=== PATIENT | female | born 1955 | race Caucasian/White ===

== ENCOUNTER 2017-03-02 22:03 | Emergency (ER) | payer MEDICAID ==
[2017-03-03 00:20] LABS: UA SPECIFIC GRAVITY >=1.030 (1.005-1.035); microscopic required? YES; urine erythrocyte TRACE (NEGATIVE)
[2017-03-03 01:22] VITALS: BP 108/72
== END 2017-03-03 01:22 | disposition home or self-care (01) ==
LOC: ED 22:03
PROVIDERS: Specialist
DX: R51 Headache (principal)
CPT/HCPCS: J1885; Q0162

== ENCOUNTER 2019-06-20 03:50 | Emergency (ER) | payer OTHER, MEDICAID ==
[~2019-06-20] VITALS: Ht 162.6 cm; Wt 61.7 kg
[2019-06-20 03:57] VITALS: BP 178/106; Ht 162.6 cm; Wt 61.7 kg
== END 2019-06-20 05:54 | disposition left against medical advice (07) ==
LOC: ED 03:50
DX: Z53.21 Procedure and treatment not carried out due to patient leaving prior to being seen by health care provider (principal)

== ENCOUNTER 2019-06-26 11:35 | Inpatient (IN) | payer OTHER, MEDICAID ==
[~2019-06-26] VITALS: Ht 162.6 cm; Wt 54.1 kg
--- NOTE | 2019-06-26 12:12 | NUR ---
PT BIB SELF C/O MID CHEST PAIN X3 DAYS AFTER "JUMPING OFF MY FENCE, BECAUSE I HAD LOCKED MY KEYS IN MY HOUSE". NO TRAUMA NOTED, RESPS E/U, PT STS "IT HURTS MORE WHEN I BREATH IN". PT PLACED ON FULL CM, NAD NOTED. SPEECH IS CLEAR, NEURO INTACT, DENIES HEAD INJ. GCS OF 15. BUE SKIN NOTED TO BE INTACT AND DEFORMED PER PT, "I HAD ABSCESSES FROM HEROIN USE, AND THEY'VE HAD TO REMOVE A LOT OF SKIN AND MUSCLE". CALL LIGHT WITHIN REACH. IN POSITION OF COMFORT.
--- NOTE | 2019-06-26 13:14 | NUR ---
REPORT GIVEN TO CAREY WILLIS TO ASSUME CARE OF PT.
--- NOTE | 2019-06-26 14:49 | NUR ---
PT RESTING IN BED WITH EYES CLOSED WITH NO SIGNS OF DISTRESS.
[2019-06-26 15:14] LABS: BASOPHIL % 0.8 % (0-2); PLATELET COUNT 395 x10^3mcL (130-400); RED CELL DISTRIBUTION WIDTH 12.8 % (11.5-14.5)
[2019-06-26 15:37] LABS: CALCIUM 8.3 mg/dL (8.5-10.1); CARBON DIOXIDE 31.2 mmol/L (21-32); CHLORIDE SERUM 103 mmol/L (98-107); CREATININE SERUM 0.9 mg/dL (0.6-1.0); GFR1 > 60 mL/min; GLUCOSE SERUM 93 mg/dL (74-106); SODIUM SERUM 139 mmol/L (136-145)
[2019-06-26 15:43] LABS: ALKALINE PHOSPHATASE 116 U/L (46-116); ALT/SGPT 23 U/L (14-59); AST/SGOT 27 U/L (15-37); BILIRUBIN TOTAL 0.25 mg/dL (0.20-1.00); TOTAL PROTEIN, SERUM 7.4 g/dL (6.4-8.2)
[2019-06-26 15:49] LABS: ALBUMIN 2.4 g/dL (3.4-5.0)
--- NOTE | 2019-06-26 16:02 | NUR ---
PT RESTING IN BED WITH NO SIGNS OF DISTRESS.
--- NOTE | 2019-06-26 17:44 | NUR ---
PT FOUND OUTSIDE OF ER. EXPLAINED TO PT NEED TO STAY IN ROOM.
--- NOTE | 2019-06-26 18:00 | NUR ---
PRINCESS PATINO AT BEDSIDE ATTEMPTING IV.
[2019-06-26 18:08] LABS: T3 TOTAL 1.32 ng/mL
[2019-06-26 18:23] LABS: CHOLESTEROL/HDL RATIO 2.7
[2019-06-26 18:31] LABS: FREE T4 1.09 ng/dL (0.76-1.46); FREE THYROXINE INDEX 2.5 ug/dL (1.4-4.5); T4(THYROXINE) 7.7 ug/dL (4.7-13.3)
--- NOTE | 2019-06-26 19:33 | NUR ---
PT RESTING IN BED WITH FRIEND AT BEDSIDE. NO SIGNS OF DISTRESS.
--- NOTE | 2019-06-26 19:35 | NUR ---
ATTEMPTED TO CALL TO GIVE REPORT AND NABOR CHOE RN, CALL BACK IN 5 MIN.
--- NOTE | 2019-06-26 19:57 | NUR ---
REPORT GIVEN TO ДМИТРИЙ PATINO.
[2019-06-26 21:37] VITALS: BP 106/70
--- NOTE | 2019-06-26 21:56 | NUR ---
Admitted this 64 y/o female from ED via [facility]. Alert and oriented. Ambulatory. No respiratory distress noted on room air. Diminished breath sounds. Denies n/v. Admission assessment done. Skin check performed. Noted erythema and edema on the right hip with tiny hole with oozing drainage. notified. Wound culture sent to lab. Cleansed wound and dressing applied. tele #6 normal sinus rhythm. Call light within reach. Will cont.to monitor.
[2019-06-27] VITALS (8 sets, daily range): BP systolic 111–146; BP diastolic 61–84; Ht 162.6 cm; Wt 54.1 kg
--- NOTE | 2019-06-27 04:30 | NUR ---
Afebrile. No significant change in condition noted. Medicated as ordered for c/o sternal pain with help. Kept comfortable. In no apparent distress.
[2019-06-27 06:10] LABS: BASOPHIL % 1.9 % (0-2); PLATELET COUNT 351 x10^3mcL (130-400); RED CELL DISTRIBUTION WIDTH 12.8 % (11.5-14.5)
[2019-06-27 06:36] LABS: CALCIUM 8.1 mg/dL (8.5-10.1); CARBON DIOXIDE 26.3 mmol/L (21-32); CHLORIDE SERUM 106 mmol/L (98-107); CREATININE SERUM 0.9 mg/dL (0.6-1.0); GFR1 > 60 mL/min; GLUCOSE SERUM 77 mg/dL (74-106); MAGNESIUM 1.8 mg/dL (1.8-2.4); PHOSPHOROUS 3.9 mg/dL (2.5-4.9); POTASSIUM SERUM 3.9 mmol/L (3.5-5.1); SODIUM SERUM 141 mmol/L (136-145)
[2019-06-27 06:55] LABS: UA SPECIFIC GRAVITY >=1.030 (1.005-1.035); microscopic required? YES; urine erythrocyte NEGATIVE (NEGATIVE)
--- NOTE | 2019-06-27 07:05 | NUR ---
RECEIVED PT FROM DRY TRANSFER MAN NURSE. PT IN BED SLEEPING, AROUSABLE, RESP E/U ON RA. NO ACUTE DISTRESS NOTED. ON TELE 6 SHOWING SR, HR: 86. IV TO AKIKO W/ NO SIGNS OF INFILTRATION, IVF INFUSING WELL. BED IN LOWEST POSITION AND CALL LIGHT WITHIN REACH. WILL CONTINUE TO MONITOR.
[2019-06-27 07:20] LABS: AMPHETAMINE QUAL UR POSITIVE (See below)
--- NOTE | 2019-06-27 08:11 | NUR ---
RECEIVED ORDER FOR CT GUIDED LUNG BIOPSY. SPOKE WITH PATIENT'S NURSE OLIVA REGARDING KEEPING PATIENT NPO THIS AM AND HOLDING THE 9 AM DOSE OF HEPARIN.
--- NOTE | 2019-06-27 09:38 | NUR ---
ECHOCARDIOGRAM PENDING-PATIENT NOT IN ROOM
--- NOTE | 2019-06-27 12:48 | NUR ---
RECEIVED A CALL FROM RADIOLOGIST AND ORDER RECEIVED TO ORDER XCR AT 1400 FOR FFUP S/P LUNG BIOPSY.
--- NOTE | 2019-06-27 12:50 | NUR ---
BEAMER HAND INFORMED OF PT NEED FOR CAB VOUCHER. RETAIL OPERATIONS SPECIALIST CALLED AT THIS TIME. CAB ARRANGED FOR PEST CONTROL SERVICE TECHNICIAN, WILL BE NOTIFIED OF ARRIVAL.
--- NOTE | 2019-06-27 19:00 | NUR ---
CARE ENDORSED TO CAREY SULLIVAN.
--- NOTE | 2019-06-27 19:20 | NUR ---
RECEIVED PT FROM AM NURSE, PT LAYING DOWN IN BED. PT AAOX4, ABLE TO FOLLOW COMMANDS AND MAKE NEEDS KNOWN. TELE#6 SARA , DENIES CP/PRESSURE AT THIS TIME. PALPABLE PULSES TO ALL EXTREMETIES, TRACE EDEMA TO BLE. AND RIGHT HIP. LUNG SOUNDS CTA, BREATHING EVEN AND UNLABORED ON RA. PT C/O ON AND OFF SOB, STATES IT GETS WORSE WITH DEEP INHALATION. ABD SOFT AND NONDISTENDED. ACTIVE BS X4 QUAD. DENIES N/V/D. VOIDS FREELY, BRP. AMBULATORY WITH ASSIST. WOUND TO RIGHT HIP COVERED WITH DRESSING. DRESSING CDI. IV TO AKIKO INFUSING IV FLUIDS PER AUG. SITE WNL. PT C/O MILD STERNUM PAIN BUT IS TOLERABLE AT THIS TIME AND DOES NOT NEED PAIN MEDICATION. NO ACUTE DISTRESS NOTED. BED AT LOWEST SETTING.SIDE RAILS X2 UP. CALL LIGHT WITHING REACH. ESTRELLA CONT TO MONITOR.
--- NOTE | 2019-06-27 23:55 | NUR ---
PT C/O 10/10 STERNUM PAIN, MEDICATED WITH PRN MORPHINE PER MAR. NO ACUTE DISTRESS NOTED. ESTRELLA CONT TO MONITOR.
--- NOTE | 2019-06-28 00:30 | NUR ---
PT LAYING DOWN IN BED WITH EYES CLOSED, BREATHING EVEN AND UNLABORED ON RA. NO ACUTE DISTRESS NOTED. BED AT LOWEST SETTING. SIDE RAILS X2 UP. CALL LIGHT WITHING REACH. WILL CONT TO MONITOR.
[2019-06-28 05:33] VITALS: BP 145/85
--- NOTE | 2019-06-28 06:00 | NUR ---
PT C/O 6 STERNUM PAIN, MEDICATED WITH PRN NORCO PER AUG. NO ACUTE DISTRESS NOTED. WILL CONT TO MONITOR.
[2019-06-28 06:25] VITALS: BP 145/85
--- NOTE | 2019-06-28 06:26 | NUR ---
PT SLEPT AT INTERVALS THROUGHOUT THE NIGHT, BREATHING EVEN AND UNLABORED ON RA. PT CONT TO C/O STERNUM PAIN, STATES RELIEF WITH PAIN MEDICATION. BINDER TO CHEST IN PLACE. IV TO AKIKO INFUSING IV FLUIDS PER MAR. SITE WNL. PRE OP WIPES PROVIDED. ALL NEEDS ASSESSED AND ATTENED TO. NO ACUTE DISTRESS NOTED. BED AT LOWEST SETTING. SIDE RAILS X2 UP. CALL LIGHT WITHING REACH. WILL CONT TO MONITOR.
--- NOTE | 2019-06-28 07:30 | NUR ---
PT ENDORSE TO ME THIS MORNING, LAYING IN BED RESTING, OR ARRIVED TO SALES AND MARKETING AGENT PT FOR PROCEDURE. AA/O X4/ BREATHING EVEN AND UNLABORED ON RA, NO ACUTE RESP DISTRESS OR SOB NOTED. TELE 6 SR NOTED/ DENIES ANY CP OR PRESSURE. IV TO THE AKIKO INTACT AND PATENT/ HEPLOCKED. CALL LIGHT IN REACH. BED IN LOW POSITION WILL CONTINUE TO MONITOR. ONCE PT RETURNS BACK TO FLOOR.
[2019-06-28 07:34] LABS: CARBON DIOXIDE 25.9 mmol/L (21-32); CHLORIDE SERUM 107 mmol/L (98-107); GLUCOSE SERUM 103 mg/dL (74-106); SODIUM SERUM 139 mmol/L (136-145)
[2019-06-28 07:35] LABS: CALCIUM 8.1 mg/dL (8.5-10.1); CREATININE SERUM 0.9 mg/dL (0.6-1.0); GFR1 > 60 mL/min; MAGNESIUM 1.8 mg/dL (1.8-2.4); PHOSPHOROUS 3.5 mg/dL (2.5-4.9)
--- NOTE | 2019-06-28 07:40 | NUR ---
REPORT GIVEN TO OR NURSE, QUESTIONS AND CONCERNS ANSWERED. AND CARE ENDORSED TO JUDAH PATINO.
[2019-06-28 07:54] LABS: BASOPHIL % 0.3 % (0-2); PLATELET COUNT 364 x10^3mcL (130-400); RED CELL DISTRIBUTION WIDTH 13.1 % (11.5-14.5)
[2019-06-28 09:15] VITALS: BP 136/84
--- NOTE | 2019-06-28 09:26 | NUR ---
WOUND CONSULT NOT DONE. PT. IS UNDER DR. HAMEED CARE, S/P I&D TO RIGHT HIP TODAY BY DR. HAMEED.
--- NOTE | 2019-06-28 09:44 | NUR ---
PT C/O OF GEN PAIN 01/20, MEDICATED PER EMAR.
--- NOTE | 2019-06-28 11:02 | NUR ---
PT FOUND IN THE BATHROOM SMOKING CIGARETTES, EDCUATED THE PT ON THE IMPORTANCE OF NOT SMOKING, PT AGREED. WILL COTINUE TO MONITOR.
--- NOTE | 2019-06-28 11:30 | NUR ---
PT BACK FROM I AND D OF R HIP. PT STABLE BREATHING EVEN AND UNLABORED ON RA, NO ACUTE RESP DISTRESS OR SOB NOTED. [facility] DRSG INTACT. WILL CONTINUE TO MONITOR.
[2019-06-28 13:10] VITALS: BP 148/81
--- NOTE | 2019-06-28 13:18 | NUR ---
NEW IV TO THE AKIKO 20 G AND RFA 20G ITNACT AND PATENT/ PT TAKEN TO COMPLETE [place] AND FROM THERE THEY WILL TAKEN TO HAVE CT COMPLETE.
--- NOTE | 2019-06-28 15:17 | NUR ---
PHYSICAL THERAPY DAILY NOTES CO-SIGN All documentation done by the [employer] Dispatcher for 06/28/19 has been reviewed. I agree with the documentation. Reviewed/Co-Signed by: Madhavi Moore PT Documentation Done by: RONA LITTLE, SPT
--- NOTE | 2019-06-28 15:57 | NUR ---
SPOKE TO (RESIDENT) ASSIGNED TO THIS PT AND MADE HIM AWARE OF CT SCAN ABD/PELVIS RESULTED WITH A SMALL RIGHT HYDROPNEUMOTHORAX(PERCENTAGE NOT STATED), SAYS HE WILL NOTIFY (ATTENDING) OF ABOVE AND WILL UPDATE ON WHAT THE PLAN IS. JUDAH PATINO ASSIGNED TO THIS PT MADE AWARE OF ABOVE. WILL AWAIT FOR FURTHER PLAN. WILL CONT TO MONITOR.
--- NOTE | 2019-06-28 16:21 | NUR ---
RECEIVED WOUND CULTURE RESULTS MRSA. PAGED DR. MARCANO, AWAITING CALL BACK.
--- NOTE | 2019-06-28 16:27 | NUR ---
SPOKE WITH DR. MARCANO MADE AWARE OF WOUND CULTURE OF MRSA, PER DR. MARCANO WILL ADJUST ANTIBIOTICS. DR. MARCANO ALSO STATES DR. BERUMEN WAS MADE AWARE OF CT ABDOMEN RESULTS SHOWING HYDROPNEUMOTHORAX, PER DR. JEET BERUMEN WILL CALL RESIDENT LATER FOR RECOMMENDATIONS.
[2019-06-28 16:36] VITALS: BP 156/89
--- NOTE | 2019-06-28 18:41 | NUR ---
NO ACUTE CHANGES AT THIS TIME. NO ACUTE RESP DISTRESS OR SOB NOTED, REMAINS ON 2L NC FOR COMFORT. IVS TO THE SIMON AND RFA INTACT AND PATENT. WILL ENDORSE TO INCOMING RN
--- NOTE | 2019-06-28 19:35 | NUR ---
RECEIVED PT FROM AM NURSE, PT LAYING DOWN IN BED. PT AAOX4, ABLE TO FOLLOW COMMANDS AND MAKE NEEDS KNOWN. MED-SURG, DENIES CP/PRESSURE AT THIS TIME. PALPABLE PULSES TO ALL EXTREMETIES, TRACE EDEMA TO LLE. AND RIGHT HIP. LUNG SOUNDS CTA, BREATHING EVEN AND UNLABORED ON RA. PT C/O ON AND OFF SOB, STATES IT GETS WORSE WITH DEEP INHALATION. ABD SOFT AND NONDISTENDED. ACTIVE BS X4 QUAD. DENIES N/V/D. VOIDS FREELY, BRP. AMBULATORY WITH ASSIST. WOUND TO RIGHT HIP COVERED WITH DRESSING, PT S/P I AND D. WOUND COVERED WITH DRESSING. DRESSING CDI. IV TO SIMON INFUSING IV FLUIDS PER MAR. SITE WNL. IV TO RFA SALINE LOCKED. SITE WNL. PT C/O MILD STERNUM PAIN BUT IS TOLERABLE AT THIS TIME AND DOES NOT NEED PAIN MEDICATION. NO ACUTE DISTRESS NOTED. BED AT LOWEST SETTING.SIDE RAILS X2 UP. CALL LIGHT WITHING REACH. ESTRELLA CONT TO MONITOR.
[2019-06-28 20:32] VITALS: BP 129/74
--- NOTE | 2019-06-28 21:05 | NUR ---
PT C/O 11/20 STERNUM PAIN. MEDICATED WITH PRN NORCO PER AUG. NO ACUTE DISTRESS NOTED. WILL CONT TO MONITOR.
--- NOTE | 2019-06-29 00:05 | NUR ---
PT LAYING DOWN IN BED WITH EYES CLOSED, BREATHING EVEN AND UNLABORED ON 2L NC. NO ACUTE DISTRESS NOTES. IV FLUIDS INFUSIN TO RFA PER ORDER. SAFETY PRECAUTIONS IN PLACE. CALL LIGHT WITHING REACH. WILL CONT TO MONITOR.
--- NOTE | 2019-06-29 02:12 | NUR ---
PT C/0 CHEST PAIN 11/20. MEDICATED WITH PRN NORCO PER AUG. NO ACUTE DISTRESS NOTED. WILL CONT TO MONITOR.
--- NOTE | 2019-06-29 05:29 | NUR ---
PT STAYED AWAKE MOST OF THE NIGHT, BREATHING EVEN AND UNLABORED ON RA. NO SIGNIFICANT CHANGES DURING SHIFT. PT DENIES ANY SUICIDAL IDEATION AT THIS TIME. ALL NEEDS ASSESSED AND ATTENDED TO. SAFETY PRECAUTIONS IN PLACE. SITTER AT BEDSIDE. CALL LIGHT WITHING REACH. WILL CONT TO MONITOR.
--- NOTE | 2019-06-29 05:45 | NUR ---
PT SLEPT AT INTERVALS THROUGHOUT THE NIGHT, BREATHING EVEN AND UNLABORED ON 2L NC. NO SIGNIFICANT CHANGES DURING SHIFT. PT C/O OF STERNUM PAIN, STATES GOOD RELIEF WITH PAIN MEDICATIONS. BINDER TO CHEST IN PLACE. ALL NEEDS ASSESSED AND ATTENED TO. NO ACUTE DISTRESS NOTED. IV TO RFA INFUSING FLUIDS PER MAR. SITE WNL. SAFETY PRECAUTIONS IN PLACE. CALL LIGHT WITHING REACH. WILL CONT TO MONITOR AND ENDORSE CARE TO AM NURSE.
[2019-06-29 05:52] VITALS: BP 99/60
[2019-06-29 07:18] LABS: BASOPHIL % 1.7 % (0-2); PLATELET COUNT 327 x10^3mcL (130-400); RED CELL DISTRIBUTION WIDTH 13.6 % (11.5-14.5)
--- NOTE | 2019-06-29 07:45 | NUR ---
RECEIVED PATIENT RESTING IN BED, NO ACUTE DISTRESS NOTED. PATIENT DENIES PAIN. DENIES SOB, ON ROOM AIR. LUNG SOUND CLEAR TO BUL, DIMINISHED TO THE RIGHT BASE, FINE CRACKLES TO THE LEFT BASE. EDEMA NOTED TO THE LLE, AND RIGHT HIP. PATIENT AMBULATORY WITH NO ASSIST. IV TO SIMON AND RFA, CDI&PATENT, NO S/S OF INFILTRATION. CALL LIGHT WITHIN REACH, BED IN LOW POSITION, WILL CONTINUE TO MONITOR.
[2019-06-29 08:04] LABS: CARBON DIOXIDE 25 mmol/L (21-32); CHLORIDE SERUM 107 mmol/L (98-107); CREATININE SERUM 0.9 mg/dL (0.6-1.0); GFR1 > 60 mL/min; GLUCOSE SERUM 105 mg/dL (74-106); POTASSIUM SERUM 3.7 mmol/L (3.5-5.1); SODIUM SERUM 139 mmol/L (136-145)
[2019-06-29 08:05] LABS: CALCIUM 7.9 mg/dL (8.5-10.1); MAGNESIUM 1.8 mg/dL (1.8-2.4); PHOSPHOROUS 4.3 mg/dL (2.5-4.9)
[2019-06-29 08:15] VITALS: BP 94/72
--- NOTE | 2019-06-29 08:55 | NUR ---
0805 PT EATING 0840 PT EATING, WILL TRY AGAIN FOR HHNTX
--- NOTE | 2019-06-29 10:00 | NUR ---
DR. MARCANO MADE AWARE OF XRAY REPORT. NO FURTHER ODERS AT THIS TIME.
[2019-06-29] MEDS ORDERED: ZYVOX600 MG PO (11:16)
[2019-06-29] MEDS ORDERED: IBU400 M2 PO (11:18)
[2019-06-29] MEDS ORDERED: NIC7 TD (11:19)
[2019-06-29] MEDS ORDERED: PROAIR HFA8.5 GM INH (11:19)
[2019-06-29 12:42] VITALS: BP 137/76
--- NOTE | 2019-06-29 12:49 | NUR ---
PATIENT WAS C/O PAIN TO RIGHT HIP 12/20, MEDICATED PATIENT WITH NORCO PER PROTOCOL (SEE EMAR). EDUCATED PATIENT ON PAIN MANAGEMENT, WILL CONTINUE TO MONITOR AND MANAGE PAIN.
[2019-06-29 13:52] VITALS: BP 137/76
--- NOTE | 2019-06-29 14:30 | NUR ---
PROVIDED PATIENT WITH WOUND CARE TO RIGHT HIP, EDUCATED PATIENT ON CHANGING DRESSING. PATIENT REPORTED SHE HAD REFUSED, HOME HEALTH SHE IS FAMILIAR WITH DRESSING CHANGES AND CAN DO IT HERSELF. PATIENT AWARE TO CHANGE DRESSING DAILY AND NEEDED, EDUCATED PATIENT ON S/S OF INFECTION. PATIENT AWARE SHE WILL NEED TO FOLLOW UP WITH THE SURGICAL SURGEON, PATIENT VERBALIZED UNDERSTANDING. PHOTOS WERE TAKEN AND PLACED IN THE CHART.
--- NOTE | 2019-06-29 15:00 | NUR ---
PATIENT RECEIVED COPY OF DISCHARGED INSTRUCTIONS, PATIENT UNDERSTANDS AND AGREES WITH DISCHARGE INSTRUCTIONS AND PLAN OR CARE, INCLUDING MEDICATIONS AND FOLLOW UP CARE. ALL QUESTIONS AND CONCERNS ADDRESSED. ARMBAND REMOVED. IV TO RFA & SIMON REMOVED, CATH INTACT. PATIENT AWAITING FOR RIDE FROM FRIEND AT THIS TIME.
== END 2019-06-29 15:40 | disposition home or self-care (01) | DRG 579 ==
LOC: ED 11:35 → DU 17:30 → MU 17:30 → DU 20:10 → MU 06-28 11:02
PROVIDERS: Specialist; Surgery; ADMIT Internal Medicine
PROC: 0BBC3ZX Excision of Right Upper Lung Lobe, Percutaneous Approach, Diagnostic (ICD-10-PCS; 2019-06-27)
PROC: 0J9L0ZZ Drainage of Right Upper Leg Subcutaneous Tissue and Fascia, Open Approach (ICD-10-PCS; principal; 2019-06-28 08:00)
DX: L03.115 Cellulitis of right lower limb (principal); E43 Unspecified severe protein-calorie malnutrition; C34.11 Malignant neoplasm of upper lobe, right bronchus or lung; S22.22XA Fracture of body of sternum, initial encounter for closed fracture; F11.20 Opioid dependence, uncomplicated; L02.415 Cutaneous abscess of right lower limb; W17.89XA Other fall from one level to another, initial encounter; D64.9 Anemia, unspecified; F17.210 Nicotine dependence, cigarettes, uncomplicated; Y93.89 Activity, other specified; Y92.89 Other specified places as the place of occurrence of the external cause; Z68.21 Body mass index [BMI] 21.0-21.9, adult
CPT/HCPCS: 32405; 83880; 84439; 88344; 97116-GP; 99406; G0378; J0690; J1644; J1885; J2001; J2060; J2250; J2270; J3010; J3490; J7030; J7120; J7620; Q0092; Q9967